=== PATIENT | male | born 1960 | race Caucasian/White ===

== ENCOUNTER 2019-04-27 11:17 | Emergency (ER) | payer MEDICAID ==
[~2019-04-27] VITALS: Ht 175.3 cm; Wt 76.2 kg
[2019-04-27 11:21] VITALS: Ht 175.3 cm; Wt 76.2 kg
[2019-04-27 13:54] VITALS: BP 145/72
== END 2019-04-27 13:54 | disposition home or self-care (01) ==
LOC: ED 11:17
DX: L03.012 Cellulitis of left finger (principal); Z98.890 Other specified postprocedural states; W26.0XXA Contact with knife, initial encounter; Y93.89 Activity, other specified; Y92.89 Other specified places as the place of occurrence of the external cause; Y99.8 Other external cause status
CPT/HCPCS: J0295; J1885